=== PATIENT | female | born 1940 | race Caucasian/White ===

== ENCOUNTER 2016-11-17 00:11 | Day surgery (SDC) | payer MEDICARE, OTHER ==
[~2016-11-17] VITALS: Ht 162.6 cm; Wt 98.3 kg
[2016-11-17] VITALS (13 sets, daily range): BP systolic 97–158; BP diastolic 52–113; PULSE 59–70; RESP 15–19; O2SAT 92–99
[~2016-11-17 00:11] MED LIST: ASPI-628 PO; ATOR20TA PO; BUPR75TA10 PO; CHOL100045 PO; COLC0.6T52 PO; FURO-128 PO; LEVO112T3 PO; METO-272 PO; MULT1TAB70 PO; POTA-64 PO; WARF2TAB7 PO; ZYL100 PO
[2016-11-17 08:32] LABS: BASOPHILS % (AUTO) 0.2 % (0-3); EOSINOPHILS % (AUTO) 2.3 % (0-5); Mean Corpuscular Hemoglobin 30.8 pg (27.0-35.0); NEUTROPHILS % (AUTO) 72.6 % (40-74); Platelet Count 152 bil/L (150-400)
[2016-11-17 08:49] LABS: INR 1.57 ratio
[2016-11-17] MEDS ORDERED: Vancomycin 1,000mg/200 mL NS IV ONE (08:55)
[2016-11-17] MEDS ORDERED: Vancomycin Inj 1,500 MG in 0.9% Sodium Chloride 500 ML IV SCH (09:30)
[2016-11-17] MEDS ORDERED: Bupivacaine-MPF 0.5% 30 mL Inj ONE (09:34)
[2016-11-17] MEDS ORDERED: Heparin 5,000 Units/500 mL NS Premix IV ONE (09:34)
[2016-11-17] MEDS ORDERED: Vancomycin 1,000 mg Inj ONE (09:35)
[2016-11-17] MEDS ORDERED: 0.9% Sodium Chloride 250 ML ONE (09:45)
--- NOTE | 2016-11-17 09:46 | NUR ---
Admitted for ICD for documented VT - and > shortness of breath - unable to walk 100 Feet. One syncopal episode. NSB with no ectopy baseline for NSB.
[2016-11-17] MEDS ORDERED: fentaNYL-PF 50 mCg/mL 2 mL Inj ONE ×2 (10:03→10:41)
[2016-11-17] MEDS: 0.9% Sodium Chloride 1,000 ML IV SCH ×2 (11:44→21:44)
[2016-11-17] MEDS ORDERED: Ondansetron 2 mg/mL 2 mL Inj IVPUSH PRN (11:45)
--- NOTE | 2016-11-17 14:45 | NUR ---
Admission Patient arrived to unit via wheelchair accompanied by staff from [facility] and spouse. Patient alert and oriented on arrival, reporting 3/10 pain not relieved by Tylenol. Patient had a dual chamber pacemaker placed this morning. Heart rate 100% paced at 60 bpm. Patient denies chest pain, shortness of breath, or dizziness. Patient up independently in room.
--- NOTE | 2016-11-17 15:03 | NUR ---
Pt returned to [facility] post dual chamber pacemaker with ICD at 1150. PCXR completed - 12 lead completed. Pacemaker 100% capture - Pacemaker incision site is soft,dry and intact. Pain level is 3/10 even after 975mg of PO Tylenol. Pt has a severe reaction to Codeine medication - chooses at this time not to try Tylenol #3 due to itching from hydromorphone. Report given to RN for room 3001. Pt arm is in a sling - prior to transport to room. Pt and family understand plan of care.
--- NOTE | 2016-11-17 15:21 | DRSVH ---
PROCEDURE: X-RAY CHEST ONE VIEW, PORTABLE ([id number]) INDICATIONS: For new leads placed TECHNIQUE: One view of the chest was acquired. COMPARISON: [facility], , CHEST 2VW, 08/15/2014, 12:19. FINDINGS: Surgical changes and devices: Cardiac pacer and sternotomy wires. Lungs and pleura: No pleural effusions or pneumothorax. Lungs are clear. There is scattered atelect asis Mediastinum: Mediastinal contours appear normal. Heart size is normal. Bones and chest wall: No suspicious bony lesions. Overlying soft tissues appear unremarkable. Bila teral shoulder degeneration. IMPRESSION: No acute disease. No pneumothorax. Dictated by: Kong Gonzalez M.D. on 11/17/2016 at 15:19 Approved by: Kong Gonzalez M.D. on 11/17/2016 at 15:20
[2016-11-17] MEDS ORDERED: WARF2TAB7 PO ×2 (17:03)
--- NOTE | 2016-11-17 17:22 | PCM.CONPHA ---
Subjective Date of Service: Nov 17, 2016 Reason for Pharmacy Consult: Anticoagulation Management Objective Vital Signs Date Time Temp Pulse Resp B/P Pulse Ox O2 Delivery O2 Flow Rate FiO2 11/17/16 15:06 64 11/17/16 14:47 36.5 63 19 139/73 99 Room Air 11/17/16 14:00 60 15 111/83 96 Room Air 11/17/16 14:00 60 15 121/52 95 Room Air 11/17/16 13:30 60 15 111/83 96 Room Air 11/17/16 13:30 60 15 115/64 95 Room Air 11/17/16 13:15 60 15 111/83 96 Room Air 11/17/16 13:15 60 15 111/83 95 Room Air 11/17/16 13:00 60 15 111/83 95 Room Air 11/17/16 13:00 60 15 111/83 96 Room Air 11/17/16 12:30 60 15 148/71 95 Room Air 11/17/16 12:30 60 15 148/71 96 Room Air 11/17/16 12:15 70 15 150/113 96 Room Air 11/17/16 12:15 70 15 150/113 95 Room Air 11/17/16 12:00 64 15 134/83 95 Room Air 11/17/16 12:00 64 15 134/83 96 Room Air 11/17/16 11:50 61 15 158/76 92 Room Air 11/17/16 11:50 61 15 158/76 92 Room Air Weight (Kilograms): 98.300 Height (Feet): 5 Height (Inches): 4.00 Test 11/17/16 08:20 White Blood Count 9.2th/mm3 (3.8-10.1) Red Blood Count 4.41mil/mm3 (3.90-5.20) Hemoglobin 13.6g/dL (12.0-15.6) Hematocrit 41.0% (35.0-46.0) Mean Corpuscular Volume 93.0fL (81-100) Mean Corpuscular Hemoglobin 30.8pg (27.0-35.0) Mean Corpuscular Hemoglobin Concent 33.2% (32.0-37.0) Red Cell Distribution Width 13.1% (12.3-15.4) Platelet Count 152bil/L (150-400) Neutrophils (%) (Auto) 72.6% (40-74) Lymphocytes (%) (Auto) 14.7% (14-46) Monocytes (%) (Auto) 10.0% (4-12) Eosinophils (%) (Auto) 2.3% (0-5) Basophils (%) (Auto) 0.2% (0-3) Prothrombin Time 16.9sec (8.1-12.5) Prothromb Time International Ratio 1.57ratio Sodium Level 142mEq/L (134-144) Potassium Level 3.9mEq/L (3.5-5.2) Chloride Level 107mEq/L (97-108) Carbon Dioxide Level 22mmol/L (18-29) Blood Urea Nitrogen 15mg/dL (8-27) Creatinine 1.11mg/dL (0.57-1.00) Estimat Glomerular Filtration Rate 68mL/min (>59) Glucose Level 130mg/dL (60-99) Calcium Level 9.3mg/dL (8.5-10.1) Assessment/Plan Assessment/Plan Warfarin dosing per pharmacy Indication: hx of DVT or PE INR goal: 2-3 Home warfarin dose: 6 mg on MWF, 4 mg on all other days of the week. INR today: 1.57 INR is subtherapeutic. Will order bolus dose today. Give warfarin 7 mg PO once this evening. Serial INRs have been ordered. Pharmacy to continue to monitor and dose warfarin daily. Thank you, Karen Hendricks Pharmacist Karen Hendricks Nov 17, 2016 17:22
--- NOTE | 2016-11-17 18:16 | NUR ---
Pain P: On arrival to unit, patient reported pain level of 4 that was not relieved by ordered Tylenol. I: Placed pillow under left arm to reduce stress on incision site and placed a bag of ice over the site. E: Upon reassessment Pt reported a more tolerable level of pain "no more than a 3"
--- NOTE | 2016-11-17 21:39 | OP ---
[address] [address] OPERATIVE REPORT PATIENT: RODRÍGUEZ HUBBARD : 1940 MR#: [id number] ADMIT: 11/17/2016 JOB ID: [id number] DATE OF SURGERY: 11/17/2016 PREOPERATIVE DIAGNOSIS(ES): 1. Hypertrophic cardiomyopathy. 2. Syncope. 3. Nonsustained VT. POSTOPERATIVE DIAGNOSIS(ES): 1. Hypertrophic cardiomyopathy. 2. Syncope. 3. Nonsustained VT. PROCEDURES PERFORMED: 1. Dual-chamber implantable cardioverter-defibrillator implantation. 2. Left upper extremity venogram. 3. Fluoroscopy. SURGEON: Kalia Kaminski MD, electrophysiology. MULTI SITE LEASING CONSULTANT: Andres Lee. IMPLANTED DEVICES: 1. [employer], Model CD 2411, , serial #[id number]. 2. RV lead [employer], DF4 single coil, 712, 65 cm, serial #[id number]. 3. RA lead, [employer] 2088TC 52 cm, serial #[id number]. ANESTHESIA: Bolus dosing of Versed and fentanyl administered to an appropriate level of sedation. INDICATION: The patient is a pleasant 76-year-old woman with hypertrophic cardiomyopathy, syncope, nonsustained VT and sick sinus syndrome. After discussion of the risks and benefits of dual-chamber ICD implantation, she opted to proceed. PROCEDURAL DESCRIPTION: Following informed consent, the patient was taken to the EP laboratory where she was prepped and draped in the usual sterile fashion. The left infraclavicular region was prepped with 40 cc of a 50/50 mixture of bupivacaine and lidocaine. Once adequate anesthesia had been achieved, a 3 cm transverse incision was performed below the scapula and dissection was carried down to the pectoralis fascia. The pocket was then fashioned using a combination of electrocautery and blunt dissection. Once adequate anesthesia was achieved, attempts to access the left axillary vein over the first rib with a micropuncture needle were unsuccessful. A left upper extremity venogram was performed. Under radiographic guidance, the vessel was cannulated twice with a micropuncture needle to deploy two 0.053 mm J guidewires. Over the first of these, a 7-Yoruba tear-away sheath was advanced. Once the guidewire was removed, an active fixation was advanced to the RV outflow tract and the RV apex. The lead was affixed in position using its associated active fixation screw and was connected to the external analyzer and demonstrated appropriately sensed R waves, impedance, and capture threshold was checked to 10 V and there was no evidence of diaphragmatic stimulation. Attention was now paid to the right atrial lead. Over the first of the deployed J guidewire, a 6-Yoruba tear-away sheath was advanced. Once the guidewire was removed, an active fixation was advanced to the right atrial appendage. It was affixed in position using associated active fixation screw. It was connected to the external analyzer and demonstrated appropriately sensed P waves, impedance. Capture threshold was checked to 10 V and there was no evidence of diaphragmatic stimulation. Once the position and redundancy of both leads was confirmed with multiple fluoroscopic views, the leads were anchored to the prepectoralis fascia using their associated anchoring sleeves and two Ethibond sutures. The pocket was then copiously irrigated with antibiotic solution. The leads were connected to a generator and the generator was placed into the pocket and affixed to the floor of the pocket using 1-0 Ti-Cron suture. The incision was then closed with running layers of absorbable suture. The wound was dressed with skin adhesive and a small dressing at the end of the procedure. The needle, sponge, and instrument counts were all correct. COMPLICATIONS: None. ESTIMATED BLOOD LOSS: Negligible. DEVICE MEASURED DATA: 1. Right atrial lead 5 mV, 380 ohms, 0.75 V at 0.4 msec. 2. RV lead greater than 12 mV, 600 ohms, 0.5 V at 0.4 msec. FINAL PROGRAM PARAMETERS: 1. DDDR 60-130 beats per minute with VIP on. 2. VF zone at 214 beats per minute. ATP during charge, 30 joules x1, 36 joules x5. 3. VT 2 zone at 171 beats per minute. ATP x1, 30 joules x1, 36 joules x3. 4. VT monitor at 150 beats per minute. IMPRESSION: Successful dual-chamber implantable cardioverter-defibrillator implantation. PLAN: 1. Stat portable chest x-ray. 2. PA and lateral chest x-ray in the morning. 3. vancomycin through tomorrow. 4. Doxycycline x7 days. 5. Wound check in one week. ATTENDING STATEMENT: I, Kalia Kaminski MD, electrophysiology attending, was present for and supervised/performed all aspects of this procedure.
[2016-11-17] MEDS ORDERED: Vancomycin Inj 1,500 MG in 0.9% Sodium Chloride 500 ML IV ONE (23:30)
[2016-11-17] MEDS ORDERED: Vancomycin Inj 1,000 MG in IV Premix 1 EACH IV ONE (23:45)
[2016-11-18 01:13] VITALS: BP 105/41; PULSE 62; RESP 18; O2SAT 96
--- NOTE | 2016-11-18 03:51 | NUR ---
NOC Activity Pt denies any chest pain. Reports of mild soreness due to pacemaker implant. Administered Tylenol as needed. HS meds and IV vancomycin administered as scheduled. Observed no s/sx of bleeding on the dressing. Hourly rounding done and pt has slept most of the night.
[2016-11-18 04:44] VITALS: PULSE 60
[2016-11-18 06:08] VITALS: BP 133/63; PULSE 60; RESP 18; O2SAT 98
[2016-11-18 06:12] LABS: INR 1.99 ratio
[2016-11-18] MEDS: 0.9% Sodium Chloride 1,000 ML IV SCH (07:32)
[2016-11-18] MEDS ORDERED: Potassium Chloride 20 mEq SR Tablet PO SCH (08:00)
[2016-11-18] MEDS ORDERED: MeTOProlol XL 50 mg ER24 Tablet PO SCH (08:30)
--- NOTE | 2016-11-18 08:55 | PCM.DIMED ---
Discharge Instructions Date of Service Nov 18, 2016 Dates of Hospitalization Discharge Diagnosis Discharge Diagnosis Hypertrophic Nonobstructive Cardiomyopathy Nonsustained VT Syncope Paroxysmal Atrial Fibrillation Sleep Apnea Hypertension Diet Low fat, Low Sodium, Heart Healthy Activity Other (Do not extend left elbow high above shoulder for one month. Do not lift , push or pull more than 10 lbs with the left arm for one month.) Call your provider Fever or Chills, Bleeding, Excessive diarrhea Patient Instructions Follow-up in: 1 week Mid-level Provider (F9): Edinson Arredondo PA-C Follow-up with Mid-level in: 6 weeks Edinson Arredondo PA-C Nov 18, 2016 08:55
--- NOTE | 2016-11-18 09:01 | DRSVH ---
PROCEDURE: X-RAY CHEST, TWO VIEWS ([id number]) INDICATIONS: For new lead placement TECHNIQUE: 2 views of the chest were acquired. COMPARISON: [facility], CR, XR CHEST 1VW (PORTABLE), 11/17/2016, 11:52. FINDINGS: Surgical changes and devices: Stable positioning of left chest AICD. Median sternotomy wires. Lungs and pleura: Small pleural effusions and no pneumothorax pneumothorax. Mild edema persists. Mediastinum: Mediastinal contours are normal. Heart size is normal. Bones and chest wall: No suspicious bony abnormalities. Soft tissues appear unremarkable. IMPRESSION: Stable chest post left AICD placement. Dictated by: Alhaji NEWBERRY Interpreted: Olivia Osborn MD on 11/18/2016 at 8:59 Transcribed by: AL on 11/18/2016 at 9:01 Approved by: Olivia Osborn M.D. on 11/18/2016 at 22:15
[2016-11-18] MEDS ORDERED: DOXY100C2 PO (09:24)
[2016-11-18 09:46] VITALS: BP 120/80; PULSE 54; RESP 18; O2SAT 96
--- NOTE | 2016-11-18 11:17 | PCM.PHAPRO ---
Progress WARFARIN DOSE PER PHARMACY [facility] MB DFF Date Nov 18-Nov INR 1.57 1.99 INR change 0.42 Warf Dose 7 mg 4MG Will continue home dosing regimen following bolus dose given last PM. Warfarin 4 mg scheduled this evening if inpatient. Josiah Miller,PharmD Josiah Miller Nov 18, 2016 11:17
--- NOTE | 2016-11-18 13:00 | NUR ---
Discharge Nursing Note: Patient was Discharged to home at 1300. Patients IV was removed intact. Her telemetry was removed. All of her discharge information was reviewed with her and her questions were answered to her satisfaction. Patient was escorted to the hospital lobby by nursing staff member and she was driven to her home by her .
--- NOTE | 2016-11-18 22:41 | DIS ---
[address] [address] DISCHARGE SUMMARY PATIENT: RODRÍGUEZ HUBBARD : 1940 MR#: [id number] ADMIT: 11/17/2016 JOB ID: [id number] DIS: 11/18/2016 REASON FOR ADMISSION: Defibrillator implant. CHIEF COMPLAINT: Palpitations and syncope. BRIEF HISTORY: The patient is a pleasant 76-year-old woman known to have hypertrophic nonobstructive cardiomyopathy, paroxysmal atrial fibrillation, nonsustained ventricular tachycardia and a recent episode of syncope. She was advised of her risk of cardiac arrest and to prevent that, defibrillator was recommended and she wished to have that implanted. COURSE IN HOSPITAL: The patient was admitted to the [facility], taken to the seed analysis laboratory assistant, where she received the dual-chamber pacing defibrillator without incident. She was taken back to the [facility] for recovery from sedation and then transferred up to the third floor [facility] for overnight telemetry and observation. She did well overnight and in the morning the incision was closed and dry and there was no hematoma. Telemetry showed sinus rhythm with frequent PVCs. Device interrogation showed excellent capture and sensing thresholds from both leads and atrial pacing occurred 82% of the time. Chest x-ray showed good lead positions and no pneumothorax. She felt well for discharge home. She was ambulatory without difficulty and had no complaints of chest pain, lightheadedness or dyspnea. DISPOSITION: The patient was discharged home in good condition with a followup appointment at the [facility] Cardiology office in one week. She was asked to keep the incision dry one day and not to extend her left elbow above her shoulder for one month nor to lift, push, or pull more than 10 pounds with the left arm for one month. She will follow her cardiac and heart healthy diets and take medications as prescribed. DISCHARGE MEDICATIONS: 1. Doxycycline 100 mg daily for one week. 2. Allopurinol 100 mg b.i.d. 3. Atorvastatin 20 mg daily. 4. Bupropion 75 mg b.i.d. 5. Vitamin D 3 2000 units daily. 6. Colchicine 0.6 mg daily p.r.n. pain. 7. Furosemide 40 mg daily. 8. Levothyroxine 112 mcg daily. 9. Metoprolol succinate 100 mg each morning and 50 mg each evening. 10. Multivitamin daily. 11. Potassium chloride 20 mEq daily. 12. Warfarin 4 mg daily alternating with 6 mg daily as directed by the anticoagulation clinic. FINAL DIAGNOSES: 1. Hypertrophic nonobstructive cardiomyopathy. 2. Nonsustained ventricular tachycardia. 3. Syncope on one occasion. 4. Paroxysmal atrial fibrillation. 5. Sleep apnea. 6. Hypertension.
== END 2016-11-18 13:02 | disposition home or self-care (01) ==
LOC: SOUO 00:11 → MPC 14:45 → SOUO 23:59
PROVIDERS: ATTEND Internal Medicine Cardiovascular Disease
DX: I42.2 Other hypertrophic cardiomyopathy (principal); Z00.6 Encounter for examination for normal comparison and control in clinical research program; I47.2 Ventricular tachycardia; R55 Syncope and collapse; I48.0 Paroxysmal atrial fibrillation; I10 Essential (primary) hypertension; E78.5 Hyperlipidemia, unspecified; G47.30 Sleep apnea, unspecified; E03.9 Hypothyroidism, unspecified; G25.81 Restless legs syndrome; Z79.01 Long term (current) use of anticoagulants; Z98.890 Other specified postprocedural states; Z86.718 Personal history of other venous thrombosis and embolism
CPT/HCPCS: 33249; 36415; 71010; 71020; 80048; 85025; 85610; 93005; 99152; 99153; C1721; C1769; C1777; C1892; C1898; J1644; J2060; J2250; J3010; J3370; J7030; J7040; J7050; Q9967